=== PATIENT | female | born 1990 | race Caucasian/White ===

== ENCOUNTER 2019-05-18 09:21 | Emergency (ER) | payer MEDICAID, OTHER ==
[~2019-05-18] VITALS: Ht 162.6 cm; Wt 103.0 kg
[2019-05-18 09:24] VITALS: BP 139/91
--- NOTE | 2019-05-18 09:33 | NUR ---
Patient ambulated to bed 8. RN evaluating patient at bedside.
--- NOTE | 2019-05-18 09:43 | NUR ---
PATIENT PRESENTS TO ED WITH VOMITING, H/A AND STOMACH CRAMPS SINCE 2AM. PT ALSO COMPLAINS OF DIARRHEA. PT STATES THAT SHE HAS HAD 6 EPISODES OF LOOSE, WATERY STOOLS SINCE 5AM. SKIN IS PINK/WARM/DRY; AAOX4 WITH EVEN AND STEADY GAIT; LUNGS CLEAR BL; HR EVEN AND REGULAR; PT DENIES ANY FEVER, CP, SOB, OR COUGH AT THIS TIME; PATIENT STATES HEADACHE PAIN OF 8/10 AT THIS TIME; VSS; PATIENT POSITIONED FOR COMFORT; HOB ELEVATED; BEDRAILS UP X2; BED DOWN. ER MD MADE AWARE OF PT STATUS. PMH: NONE MEDS: NONE NKA
[2019-05-18] MEDS ORDERED: ONDANSETRON 4 MG ODT PO ONE (09:50)
[2019-05-18] MEDS ORDERED: DIPHENOXYLATE /ATROPINE 2.5 MG TAB PO ONE (09:50)
[2019-05-18 11:09] VITALS: BP 139/91
--- NOTE | 2019-05-18 11:11 | NUR ---
Patient discharged with v/s stable. Written and verbal after care instructions given and explained. Patient alert, oriented and verbalized understanding of instructions. Ambulatory with steady gait. All questions addressed prior to discharge. ID band removed. Patient advised to follow up with PMD. Rx of ZOFRAN, LOMOTIL, ACETAMINOPHEN given. Patient educated on indication of medication including possible reaction and side effects. Opportunity to ask questions provided and answered.
== END 2019-05-18 11:10 | disposition home or self-care (01) ==
LOC: MED 09:21
DX: R11.10 Vomiting, unspecified (principal); R19.7 Diarrhea, unspecified
CPT/HCPCS: 81025; 99283; Q0162

== ENCOUNTER 2019-08-26 16:18 | Emergency (ER) | payer OTHER ==
[~2019-08-26] VITALS: Ht 165.1 cm; Wt 116.1 kg
[2019-08-26 16:27] VITALS: BP 155/86
--- NOTE | 2019-08-26 16:32 | NUR ---
PT AMBULATED TO LOBBY WITH STEADY GAIT.
--- NOTE | 2019-08-26 16:43 | NUR ---
TO ED 12, AMBULATORY.
--- NOTE | 2019-08-26 16:59 | NUR ---
PT PRESENTS TO ED FOR EVALUATION OD LOWER ABNOMINAL PAIN WITH FLU LIKS SYMPTOMS X 3 DAYS. PT AAO X4, GCS 15, AMBULATORY WITH STEADY GAIT. RESPIRATIONS EVEN AND UNLABORED, BL LUNG CLEAR. SKIN WARM/PINK/DRY, +PMSC. ABDOMEN SOFT, NON DISTENDED, ACTIVE BOWEL SOUND X4. CRAMPING 8/10. VS WNL. WILL CONTINUE TO MONITOR
[2019-08-26] MEDS ORDERED: KETOROLAC 30 MG/ML VIAL IVP ONE (17:10)
[2019-08-26 17:38] LABS: BASOPHILS % (AUTO) 0.4 % (0.0-2.0); EOSINOPHILS # (AUTO) 0.1 K/uL (0-0.4); EOSINOPHILS % (AUTO) 1.2 % (0.0-4.0); HEMATOCRIT 40.6 % (36-48); HEMOGLOBIN 13.1 g/dL (12.0-16.0); LYMPHOCYTES # (AUTO) 2.5 K/uL (2.5-16.5); LYMPHOCYTES % (AUTO) 22.3 % (20.5-51.1); MEAN CORPUSCULAR HEMOGLOBIN 29 pg (27-31); MEAN CORPUSCULAR HGB CONC 32 g/dL (33-37); MEAN CORPUSCULAR VOLUME 89.9 fL (80-94); MONOCYTES # (AUTO) 0.6 K/uL (0.8-1.0); MONOCYTES % (AUTO) 5.2 % (1.7-9.3); NEUTROPHILS # (AUTO) 7.8 K/uL (1.8-7.7); NEUTROPHILS % (AUTO) 70.9 % (42.2-75.2); PLATELET COUNT (AUTO) 286 K/uL (140-450); RED BLOOD CELL COUNT(AUTO) 4.51 MIL/uL (4.20-5.40)
[2019-08-26 17:50] LABS: ALBUMIN 3.7 g/dL (3.4-5.0); ANION GAP 11.7 (8-16); CARBON DIOXIDE 29.9 mmol/L (21-32); CREATININE 0.6 mg/dL (0.6-1.3); POTASSIUM 3.6 mmol/L (3.5-5.1); TOTAL BILIRUBIN 0.3 mg/dL (0.0-1.0)
[2019-08-26] MEDS ORDERED: NACL 0.9% 1,000 ML IV ONE (18:10)
--- NOTE | 2019-08-26 19:01 | NUR ---
Patient returned from CT scan. RN re-evaluating patient at bedside.
--- NOTE | 2019-08-26 19:14 | NUR ---
REPORT FROM FRANK RN
[2019-08-26 20:05] VITALS: BP 116/59
== END 2019-08-26 20:05 | disposition home or self-care (01) ==
LOC: MED 16:18
DX: R10.31 Right lower quadrant pain (principal)
CPT/HCPCS: 36415; 74177; 76856; 80053; 81002; 81025; 85025; 96374; 99285; J1885; J7030; Q0092; Q9967

== ENCOUNTER 2021-09-07 18:53 | Emergency (ER) | payer OTHER ==
[~2021-09-07] VITALS: Ht 162.6 cm; Wt 103.9 kg
[2021-09-07 19:36] VITALS: BP 143/80
--- NOTE | 2021-09-07 19:44 | NUR ---
PT SENT TO LOBBY.
--- NOTE | 2021-09-07 21:19 | NUR ---
PT TAKEN TO BED 09.
--- NOTE | 2021-09-07 21:30 | NUR ---
31 Y/O FEMALE BIB SELF, C/O LACERATION TO NOSE AT 1500 TODAY. PATIENT PRESENTS TO ED WITH SMALL SUPERFICIAL CUT TO BRIDGE OF NOSE, BLURRED VISION, AND DIZZINESS; RIGHT FOOT AND RIGHT SHOULDER PAIN. PT STATES AT WORK SHE WAS MOVING SOME OVERHEAD SHELVING WHEN HER HAND SLIPPED AND THE SHELVING CAME DOWN ONTO HER HEAD AND SHOULDER THEN FELL TO HER FOOT. DENIES N/V/D; SKIN IS PINK/WARM/DRY; AAOX4 WITH EVEN AND STEADY GAIT; LUNGS CLEAR BL; HR EVEN AND REGULAR; PT DENIES ANY FEVER, CP, SOB, OR COUGH AT THIS TIME; PATIENT STATES PAIN OF 9/10 AT THIS TIME; VSS; PATIENT POSITIONED FOR COMFORT; HOB ELEVATED; BEDRAILS UP X1; BED DOWN. ER MD MADE AWARE OF PT STATUS. DENIES HX, ALLERGIES, OR MEDS
[2021-09-07] MEDS ORDERED: ACETAMINOPHEN EXTRA STRENGTH 500 MG TAB PO ONE (21:55)
--- NOTE | 2021-09-07 23:29 | NUR ---
PT TAKEN TO RAD VIA W/C
--- NOTE | 2021-09-07 23:37 | NUR ---
PT RETURN FROM RADIOLOGY
--- NOTE | 2021-09-07 23:49 | NUR ---
Dr. Atkins examining patient.
[2021-09-07] MEDS ORDERED: BACITRACIN OINT 500 UNITS/GM PKT TP ONE (23:50)
[2021-09-08] MEDS ORDERED: ACET-10509 PO (00:40)
[2021-09-08 01:00] VITALS: BP 129/77
--- NOTE | 2021-09-08 01:00 | NUR ---
Patient discharged with v/s stable. Written and verbal after care instructions given and explained. Patient alert, oriented and verbalized understanding of instructions. Ambulatory with steady gait. All questions addressed prior to discharge. ID band removed. Patient advised to follow up with PMD. Rx of Acetaminophen given. Patient educated on indication of medication including possible reaction and side effects. Opportunity to ask questions provided and answered.VSS, A/Ox4, AMBULATORY, UNLABORED BREATHING, AND CALM DEMEANOR.
== END 2021-09-08 01:00 | disposition home or self-care (01) ==
LOC: MED 18:53
DX: S90.31XA Contusion of right foot, initial encounter (principal); S40.011A Contusion of right shoulder, initial encounter; S00.31XA Abrasion of nose, initial encounter; W18.39XA Other fall on same level, initial encounter; Y93.89 Activity, other specified; Y92.89 Other specified places as the place of occurrence of the external cause; Y99.8 Other external cause status
CPT/HCPCS: 70160; 99285

== ENCOUNTER 2021-09-25 12:20 | Emergency (ER) | payer OTHER ==
[~2021-09-25] VITALS: Ht 162.6 cm; Wt 103.4 kg
[~2021-09-25 12:20] MED LIST: ACET-10509 PO
[2021-09-25 12:25] VITALS: BP 150/90
--- NOTE | 2021-09-25 12:32 | NUR ---
PT AMBULATED TO ER BED 4
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
--- NOTE | 2021-09-25 12:52 | NUR ---
LORETTA GUARDADO AT PT BEDSIDE FOR FURTHER EVALUATION.
[2021-09-25] MEDS ORDERED: KETOROLAC 30 MG/ML VIAL IM ONE (13:00)
[2021-09-25] MEDS ORDERED: FLONAS NS (13:18)
[2021-09-25] MEDS ORDERED: TRAM50TA1 PO (13:18)
[2021-09-25] MEDS ORDERED: PRED20TA5 PO (13:18)
[2021-09-25 13:39] VITALS: BP 150/90
--- NOTE | 2021-09-25 13:39 | NUR ---
Patient discharged with v/s stable. Written and verbal after care instructions ABOUT SINUS HEADACHE given and explained. Patient alert, oriented and verbalized understanding of instructions. Ambulatory with steady gait. All questions addressed prior to discharge. ID band removed. Patient advised to follow up with PMD. Rx of FLONASE NASAL, DELTASONE AND ULTRAM given. Patient educated on indication of medication including possible reaction and side effects. Opportunity to ask questions provided and answered.
== END 2021-09-25 13:39 | disposition home or self-care (01) ==
LOC: MED 12:20
DX: J32.0 Chronic maxillary sinusitis (principal); M54.2 Cervicalgia; Z79.899 Other long term (current) drug therapy
CPT/HCPCS: 96372; 99283; J1885

== ENCOUNTER 2021-11-17 22:14 | Emergency (ER) | payer OTHER ==
[~2021-11-17] VITALS: Ht 162.6 cm; Wt 108.0 kg
[~2021-11-17 22:14] MED LIST changes: +FLONAS NS; +PRED20TA5 PO; +TRAM50TA1 PO
[2021-11-17 22:25] VITALS: BP 146/93
--- NOTE | 2021-11-17 22:30 | NUR ---
PT REPORTS SWELLING ALL OVER BODY.
[2021-11-17 22:57] LABS: BASOPHILS # (AUTO) 0.1 K/uL (0.00-0.22); BASOPHILS % (AUTO) 0.5 % (0.0-2.0); EOSINOPHILS # (AUTO) 0.4 K/uL (0-0.4); EOSINOPHILS % (AUTO) 2.7 % (0.0-4.0); HEMOGLOBIN 12.7 g/dL (12.0-16.0); LYMPHOCYTES # (AUTO) 2.2 K/uL (2.5-16.5); LYMPHOCYTES % (AUTO) 16.9 % (20.5-51.1); MEAN CORPUSCULAR HEMOGLOBIN 30 pg (27-31); MEAN CORPUSCULAR HGB CONC 33 g/dL (33-37); MEAN CORPUSCULAR VOLUME 88.7 fL (80-94); MONOCYTES # (AUTO) 0.7 K/uL (0.8-1.0); NEUTROPHILS # (AUTO) 9.8 K/uL (1.8-7.7); NEUTROPHILS % (AUTO) 74.9 % (42.2-75.2); PLATELET COUNT (AUTO) 294 K/uL (140-450); RED BLOOD CELL COUNT(AUTO) 4.28 MIL/uL (4.20-5.40); RED CELL DISTRIBUTION WIDTH 13.5 % (11.6-13.7)
[2021-11-17] MEDS ORDERED: ACETAMINOPHEN EXTRA STRENGTH 500 MG TAB PO ONE (23:05)
[2021-11-17 23:18] LABS: ALBUMIN 3.5 g/dL (3.4-5.0); ANION GAP 13.8 (8-16); ASPARTATE AMINOTRANSFERASE 22 U/L (15-37); CARBON DIOXIDE 24.6 mmol/L (21-32); CHLORIDE 103 mmol/L (98-107); CREATININE 0.7 mg/dL (0.6-1.3); GFR ARICAN-AMERICAN 127 mL/min (>90); GLUCOSE 114 mg/dL (74-106); POTASSIUM 3.4 mmol/L (3.5-5.1); SODIUM SERUM 138 mmol/L (136-145); TOTAL BILIRUBIN 0.5 mg/dL (0.0-1.0); UREA NITROGEN, BLOOD 8 mg/dL (7-18)
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
[2021-11-17] MEDS ORDERED: POTASSIUM CHLORIDE 10 MEQ TABER PO ONE (23:35)
[2021-11-17] MEDS ORDERED: KETOROLAC 30 MG/ML VIAL IM ONE (23:35)
--- NOTE | 2021-11-17 23:59 | NUR ---
ER AT BEDSIDE
--- NOTE | 2021-11-18 02:24 | NUR ---
PT IS SLEEPING, EASILY AROUSABLE. PT STATES SHE HAS NO PAIN BUT HAS A 4/10 PRESSURE IN HER HEAD.
[2021-11-18] MEDS ORDERED: FLONAS NS (02:32)
[2021-11-18] MEDS ORDERED: MUC600 PO (02:32)
[2021-11-18] MEDS ORDERED: DESL1T12 PO (02:32)
[2021-11-18] MEDS ORDERED: ALBU0.0912 IH (02:33)
[2021-11-18 02:45] VITALS: BP 127/62
--- NOTE | 2021-11-18 02:47 | NUR ---
Patient discharged with v/s stable. Written and verbal after care instructions given and explained. Patient alert, oriented and verbalized understanding of instructions. Ambulatory with steady gait. All questions addressed prior to discharge. ID band removed. Patient advised to follow up with PMD. Rx of PROVENTIL HFA MDI, CLARINEX-D 12 HR TAB, FLONASE NASAL, AND MUCINEX given. Patient educated on indication of medication including possible reaction and side effects. Opportunity to ask questions provided and answered. VSS, A/OX4, UNLABORED BREATHING, AMBULATORY, AND CALM DEMEANOR.
== END 2021-11-18 02:42 | disposition home or self-care (01) ==
LOC: MED 22:14
DX: J06.9 Acute upper respiratory infection, unspecified (principal); J01.90 Acute sinusitis, unspecified; R07.9 Chest pain, unspecified; Z79.899 Other long term (current) drug therapy; Z79.891 Long term (current) use of opiate analgesic
CPT/HCPCS: 36415; 71045; 80053; 84484; 85025; 93005; 96372; 99285; J1885; Q0092

== ENCOUNTER 2022-11-27 23:23 | Emergency (ER) | payer OTHER ==
[~2022-11-27] VITALS: Ht 162.6 cm; Wt 112.5 kg
[~2022-11-27 23:23] MED LIST changes: +ALBU0.0912 IH; +DESL1TBM PO; +MUC600 PO; +TRAM-748 PO; -TRAM50TA1 PO
[2022-11-27 23:39] VITALS: BP 134/96
--- NOTE | 2022-11-27 23:55 | NUR ---
SEEN AND EXAMINED BY CONI
[2022-11-28] MEDS ORDERED: CYCL-711 PO (01:55)
[2022-11-28] MEDS ORDERED: DICL100G5 TP (01:55)
[2022-11-28] MEDS ORDERED: NAPR-54 PO (01:55)
[2022-11-28 02:10] VITALS: BP 129/82
--- NOTE | 2022-11-28 02:10 | NUR ---
Patient discharged with v/s stable. Written and verbal after care instructions given and explained. Patient alert, oriented and verbalized understanding of instructions. Ambulatory with steady gait. All questions addressed prior to discharge. ID band removed. Patient advised to follow up with PMD. Rx of FLEXIREL, DICLOFENAC, NAPROSYN given. Patient educated on indication of medication including possible reaction and side effects. Opportunity to ask questions provided and answered.
== END 2022-11-28 02:10 | disposition home or self-care (01) ==
LOC: MED 23:23
DX: M25.511 Pain in right shoulder (principal); Z79.899 Other long term (current) drug therapy
CPT/HCPCS: 73030; 99283

== ENCOUNTER 2023-04-04 01:09 | Emergency (ER) | payer OTHER ==
[~2023-04-04] VITALS: Ht 162.6 cm; Wt 112.0 kg
[~2023-04-04 01:09] MED LIST changes: +CYCL-711 PO; +DICL100G32 TP; +NAPR-54 PO
[2023-04-04 01:40] VITALS: BP 144/79; PULSE 90; RESP 18; TEMP 97.6; O2SAT 98
[2023-04-04] MEDS: ACETAMINOPHEN EXTRA STRENGTH 500 MG TAB PO ONE (02:46)
[2023-04-04] MEDS: LIDOCAINE 5% 1 EA PATCH TP ONE (02:47)
[2023-04-04] MEDS: CYCLOBENZAPRINE 10 MG TAB PO ONE (03:25)
[2023-04-04] MEDS ORDERED: CYCL-711 PO (04:23)
[2023-04-04] MEDS ORDERED: LID5T TP (04:23)
[2023-04-04 04:29] VITALS: BP 144/79; PULSE 90; RESP 18; TEMP 97.6; O2SAT 98
== END 2023-04-04 04:29 | disposition home or self-care (01) ==
LOC: MED 01:09
DX: S16.1XXA Strain of muscle, fascia and tendon at neck level, initial encounter (principal); Z79.899 Other long term (current) drug therapy; X58.XXXA Exposure to other specified factors, initial encounter; Y93.89 Activity, other specified; Y92.89 Other specified places as the place of occurrence of the external cause; Y99.8 Other external cause status
CPT/HCPCS: 72125; 99284

== ENCOUNTER 2024-01-09 23:30 | Emergency (ER) | payer OTHER ==
[~2024-01-09] VITALS: Ht 162.6 cm; Wt 108.4 kg
[~2024-01-09 23:30] MED LIST changes: +LID5T TP; +NAPR-337 PO; -NAPR-54 PO
[2024-01-09 23:51] VITALS: BP 134/83; PULSE 140; RESP 20; TEMP 96.8; O2SAT 97
[2024-01-10] MEDS: DEXAMETHASONE 10 MG/ML VIAL PO ONE (04:29)
[2024-01-10] MEDS: KETOROLAC 30 MG/ML VIAL IM ONE (04:29)
[2024-01-10] MEDS ORDERED: AMOX1TAB8 PO ×2 (06:28→18:58)
[2024-01-10] MEDS ORDERED: NAPR-337 PO ×2 (06:28→18:58)
[2024-01-10 07:52] VITALS: BP 126/71; PULSE 103; RESP 18; TEMP 98.6; O2SAT 97
[2024-01-11] MEDS ORDERED: NAPR-337 PO (09:25)
[2024-01-11] MEDS ORDERED: AMOX1TAB8 PO (09:25)
== END 2024-01-10 07:54 | disposition home or self-care (01) ==
LOC: MED 23:30
DX: J02.9 Acute pharyngitis, unspecified (principal); G89.29 Other chronic pain; M54.2 Cervicalgia; R51.9 Headache, unspecified; Z79.1 Long term (current) use of non-steroidal anti-inflammatories (NSAID); Z79.899 Other long term (current) drug therapy; Z79.2 Long term (current) use of antibiotics
CPT/HCPCS: 72125; 81025; 87081; 96372; 99285; J1100; J1885; 99284

== ENCOUNTER 2024-03-13 11:18 | Emergency (ER) | payer OTHER ==
[~2024-03-13] VITALS: Ht 162.6 cm; Wt 113.4 kg
[~2024-03-13 11:18] MED LIST changes: -ACET-10509 PO; +ACET500T99 PO; +AMOX1TAB8 PO
[2024-03-13 11:33] VITALS: BP 125/74; PULSE 95; RESP 18; TEMP 98.5; O2SAT 98
--- NOTE | 2024-03-13 12:11 | NUR ---
PA CAMPBELL EVALUATING PT
[2024-03-13] MEDS: KETOROLAC 30 MG/ML VIAL IM ONE (12:41)
--- NOTE | 2024-03-13 13:00 | NUR ---
Patient discharged with v/s stable. Written and verbal after care instructions given FOR NEUROPATHIC PAIN Patient alert, oriented and verbalized understanding of instructions. Ambulatory with steady gait. All questions addressed prior to discharge. ID band removed. Patient advised to follow up with PMD. Opportunity to ask questions provided and answered. WORK NOTE PROVIDED
== END 2024-03-13 13:00 | disposition home or self-care (01) ==
LOC: MED 11:18
DX: G89.29 Other chronic pain (principal); M54.2 Cervicalgia; R20.2 Paresthesia of skin; R03.0 Elevated blood-pressure reading, without diagnosis of hypertension; Z79.899 Other long term (current) drug therapy
CPT/HCPCS: 96372; 99283; J1885